=== PATIENT | male | born 1935 | race Caucasian/White ===

== ENCOUNTER 2021-03-24 11:58 | Outpatient (CLI) | payer MEDICARE | END 2021-03-24 11:59 | disposition home or self-care (01) | LOC: CSHCT 11:58 | PROVIDERS: ATTEND Neurological Surgery | DX: S06.360A Traumatic hemorrhage of cerebrum, unspecified, without loss of consciousness, initial encounter (principal); S06.339D Contusion and laceration of cerebrum, unspecified, with loss of consciousness of unspecified duration, subsequent encounter | CPT/HCPCS: 70450 ==